=== PATIENT | female | born 1975 | race American Indian/Alaskan Native ===

== ENCOUNTER 2016-09-25 15:17 | Emergency (ER) | payer OTHER ==
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
[2016-09-25] MEDS ORDERED: TRIPLE ANTIBIOTIC TP ONE (19:52)
[2016-09-25] MEDS ORDERED: NORCO 5/325 PO ONE (19:52)
[2016-09-25] MEDS ORDERED: ANCEF IM ONE (19:52)
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
[2016-09-25] MEDS ORDERED: NACL 0.9% IR ONE (21:13)
[2016-09-25] MEDS ORDERED: AUGMENTIN 875 MG PO ONE (21:19)
[2016-09-25 21:57] VITALS: BP 128/93
== END 2016-09-25 22:03 ==
LOC: EEVIPCON 15:17 → ED 15:17
DX: S20.211A Contusion of right front wall of thorax, initial encounter (principal); S20.311A Abrasion of right front wall of thorax, initial encounter; S60.222A Contusion of left hand, initial encounter; M79.1 Myalgia; Y08.89XA Assault by other specified means, initial encounter; Y93.9 Activity, unspecified; Y92.9 Unspecified place or not applicable; Y99.9 Unspecified external cause status
CPT/HCPCS: 73130; 96372; 99283; J0690; A6250